=== PATIENT | female | born 1965 | race Caucasian/White ===

== ENCOUNTER 2022-10-24 21:11 | Emergency (ER) | payer MEDICAID, OTHER ==
[~2022-10-24 21:11] MED LIST: Iopamidol 370 76% 100 ML VIAL ONE
[2022-10-24 22:10] LABS: Prothrombin Time 13.4 sec (12.0-14.7)
[2022-10-24 22:21] LABS: PTT 28.1 sec (22.9-36.1)
[2022-10-24 22:38] LABS: #Lymphocytes 2.2 thou/uL (1.20-3.40); #Monocytes 0.5 thou/uL (0.11-0.59); #Neutrophils 2.6 thou/uL (1.40-6.50); %Basophils 0.3 % (0.0-1.0); %Eosinophils 0.8 % (0.0-10.0); %Lymphocytes 41.5 % (21.0-51.0); %Monocytes 8.9 % (0.0-10.0); %Neutrophils 48.5 % (42.0-75.0); Hemoglobin 11.9 g/dL (12.0-16.0); Mean Corpuscular HGB CONC 35.6 g/dL (32.0-36.0); Mean Corpuscular Hemoglobin 39.1 pg (27.0-31.0); Mean Platelet Volume 6.3 fL (7.4-10.4); Platelet Count 208 10x3/uL (130-400); RBC Distribution Width 15.7 % (11.5-14.5); Red Blood Cell (RBC) Count 3.03 mill/uL (4.20-5.40); White Blood Cell (WBC) Count 5.3 10x3/uL (4.8-10.8)
[2022-10-24] MEDS ORDERED: Acetaminophen 325 MG TAB ONE (22:38)
[2022-10-24 22:54] LABS: ALT (SGPT) 21 U/L (8-55); AST (SGOT) 31 U/L (5-34); Albumin 2.7 g/dL (3.5-5.0); Alkaline Phosphatase 66 U/L (40-110); Anion Gap 14 mmol/L (10-20); BUN (Urea Nitrogen) 6 mg/dL (9.8-20.1); Bilirubin, Total 0.3 mg/dL (0.2-1.2); CK (CPK) 30 U/L (29-168); Calc. Creatinine Clearance 0 mL/min (70-130); Calcium 8.1 mg/dL (7.8-10.44); Carbon Dioxide 23 mmol/L (22-29); Chloride 99 mmol/L (98-107); Estimated GFR 101; Globulin 2.6 g/dL (2.4-3.5); Glucose 75 mg/dL (70-105); Potassium 4.1 mmol/L (3.5-5.1); Protein, Total 5.3 g/dL (6.0-8.3); Sodium 132 mmol/L (136-145)
== END 2022-10-24 23:38 | disposition home or self-care (01) ==
LOC: BURERS 21:11
DX: S93.402A Sprain of unspecified ligament of left ankle, initial encounter (principal); S80.02XA Contusion of left knee, initial encounter; S00.81XA Abrasion of other part of head, initial encounter; S50.819A Abrasion of unspecified forearm, initial encounter; E46 Unspecified protein-calorie malnutrition; F17.210 Nicotine dependence, cigarettes, uncomplicated; W10.9XXA Fall (on) (from) unspecified stairs and steps, initial encounter
CPT/HCPCS: 36415; 70450; 71260; 74177; 80053; 82550; 83605; 84484; 85025; 85610; 85730; 93005; Q9967

== ENCOUNTER 2024-05-16 13:56 | Outpatient (CLI) | payer OTHER | END 2024-05-16 13:57 | disposition home or self-care (01) | LOC: BURRAD 13:56 | PROVIDERS: ATTEND Physician Assistant | DX: S92.352G Displaced fracture of fifth metatarsal bone, left foot, subsequent encounter for fracture with delayed healing (principal) ==

== ENCOUNTER 2024-12-20 15:06 | Emergency (ER) | payer OTHER ==
[2024-12-20] MEDS ORDERED: HYDROcodone/Acetaminophen 5/325 mg Tablet ONE (15:34)
== END 2024-12-20 16:07 | disposition home or self-care (01) ==
LOC: BURERS 15:06
DX: S80.01XA Contusion of right knee, initial encounter (principal); M25.531 Pain in right wrist; F17.210 Nicotine dependence, cigarettes, uncomplicated; W01.0XXA Fall on same level from slipping, tripping and stumbling without subsequent striking against object, initial encounter; Z55.6 Problems related to health literacy
CPT/HCPCS: 99283